=== PATIENT | female | born 1980 | race Caucasian/White ===

== ENCOUNTER 2021-02-03 19:41 | Emergency (ER) | payer OTHER ==
[~2021-02-03] VITALS: Ht 172.7 cm; Wt 101.6 kg
--- NOTE | 2021-02-03 20:47 | PHYS DOC ---
Past History Past Surgical History: Other Additional Past Surgical Histo: hernia, wisdom teeth extraction (EDDY FAULKNER APRN) Adult General Chief Complaint Chief Complaint: CONGESTION HPI HPI Patient is a 40-year-old female presents emergency department with chief complaint of cough and congestion this morning that has resolved throughout the day. Patient states that she has an 1 year 7-month-old son that attends daycare and it was reported there has been RSV cases with other children that attend the daycare her son attends, patient fears she may have contracted RSV. Patient currently denies chest pain, shortness of breath, cough, fever or chills. Patient states that she did have a cough this morning but it did resolve. Patient denies rashes of her skin, visual disturbances, dizziness or headaches. Patient states she is a non-smoker, nondrinker, does not use illicit drugs. Patient states she has not been on any antibiotics over the past 3 months. Patient reports she has had the Moderna COVID-19 vaccine completed. (EDDY FAULKNER APRN) Review of Systems Review of Systems 14 body systems of review of systems have been reviewed. See HPI for pertinent positives and negative responses, otherwise all other systems are negative, nonpertinent or noncontributory. Constitutional: Negative except as outlined in HPI above. Skin: Negative except as outlined in HPI above. Eyes: Negative except as outlined in HPI above. HENT: Negative except as outlined in HPI above. Respiratory: Negative except as outlined in HPI above. Cardiovascular: Negative except as outlined in HPI above. GI: Negative except as outlined in HPI above. : Negative except as outlined in HPI above. Musculoskeletal: Negative except as outlined in HPI above. Integument: Negative except as outlined in HPI above. Neurologic: Negative except as outlined in HPI above. Endocrine: Negative except as outlined in HPI above. Lymphatic: Negative except as outlined in HPI above. Psychiatric: Negative except as outlined in HPI above. (EDDY FAULKNER APRN) Physical Exam Physical Exam Constitutional: Well developed, well nourished, no acute distress, non-toxic a ppearance. 40-year-old female in no apparent distress. HENT: Normocephalic, atraumatic. No lymphadenopathy of the head or neck appreciated, oropharynx moist, pink, no infectious process appreciated, no drooling, no trismus. Eyes: Conjunctiva normal, no discharge. Neck: Normal range of motion, no stridor. Cardiovascular: No cyanosis appreciated, distal cap refill less than 2 seconds. Heart sounds S1-S2. Lungs & Thorax: Patient is in no respiratory distress, no audible adventitious lung sounds appreciated. Lung sounds clear to auscultate all lung price, no adventitious lung sounds appreciated per auscultation. Abdomen: Nontender, no abnormalities noted. Skin: Warm, dry, no erythema, no rash. Back: No tenderness, no deformities. Extremities: No tenderness, no cyanosis, no clubbing, ROM intact, no edema. Neurologic: Alert and oriented X 3, normal motor function, normal sensory f unction, no focal deficits noted. Psychologic: Affect normal, judgement normal, mood normal. (EDDY FAULKNER APRN) Current Patient Data Vital Signs Vital Signs Date Time Temp Pulse Resp B/P (MAP) Pulse Ox O2 Delivery O2 Flow Rate FiO2 02/03/21 20:23 99.1 96 18 124/87 97 Room Air (EDDY FAULKNER APRN) EKG EKG [] (EDDY FAULKNER APRN) Radiology/Procedures Radiology/Procedures PATIENT: BRETT PAT ACCOUNT: [id number] : 1980 LOCATION: ER AGE: 40 SEX: F EXAM STATUS: DEP ER ORD. PHYSICIAN: EDDY FAULKNER APRN REASON: cough and congestion PROCEDURE: CHEST AP ONLY XR CHEST 1V 02/03/2021 9:31 PM INDICATION: Cough and congestion COMPARISON: None available TECHNIQUE: Portable frontal view of the chest is provided. FINDINGS: The cardiomediastinal silhouette is within normal limits. Lungs are clear. There are no significant pleural effusions. There is no pulmonary vascular congestion. No pneumothorax. No suspicious osseous abnormality. IMPRESSION: There is no acute cardiopulmonary process. Electronically signed by: Jan Brothers MD (02/03/2021 10:39 PM) [facility] DICTATED AND SIGNED BY: JAN BROTHERS MD DATE: 02/03/21 1397 CC: EDDY FAULKNER APRN; PCP,UNKNOWN ~MTH0 0 (EDDY FAULKNER APRN) Heart Score C/O Chest Pain: No Risk Factors: Risk Factors: DM, Current or recent (<one month) smoker, HTN, HLP, family history of CAD, obesity. Risk Scores: Risk Factors: DM, Current or recent (<one month) smoker, HTN, HLP, family history of CAD, obesity. (EDDY FAULKNER APRN) Course & Med Decision Making Course & Med Decision Making Pertinent Labs and Imaging studies reviewed. (See chart for details) 40-year-old female, vital signs reviewed, presents emergency department complaining of cough and congestion this morning that resolved throughout the day. Physical examination unremarkable however patient's complaint of cough and congestion will order chest x-ray to rule out pulmonary infectious process. Patient denies any chest pain or palpitations, EKG not indicated. Patient's chest x-ray unremarkable, discussed findings with patient, complaint of cough and congestion most likely viral bronchitis, patient agrees with this, patient states she does not have any symptoms at this time. Will recommend gcrl-snr-mqdrixw cough medicines and throat anesthetics for ongoing symptoms if they do arise. Rnqf-hge-hpugixu Tylenol or Motrin for fevers, chills, discomfort. Patient gave verbal understanding discharge home instructions, follow-up with PCP this week for ongoing symptoms, return to ER precautions and concerns, patient remained hemodynamically stable throughout her ER stay and at discharge time, patient had no further questions or concerns, patient was discharged home without incident. (EDDY FAULKNER APRN) Course & Med Decision Making Did not see or evaluate patient. Agree with BIT SHAVER's work-up and disposition per note (TOMMY VILLEGAS MD) Dragon Disclaimer Dragon Disclaimer This electronic medical record was generated, in whole or in part, using a voice recognition dictation system. (EDDY FAULKNER APRN) Departure Departure: Impression: Primary Impression: Bronchitis Disposition: HOME / SELF CARE / HOMELESS Condition: GOOD Referrals: PCP,UNKNOWN (PCP) Patient Instructions: Acute Bronchitis Additional Instructions: You were seen today in the emergency department for cough and congestion. I believe this is an exacerbation of an acute bronchitis brought on by a viral syndrome most likely contacted from your son who has been around other viral syndromes at his daycare. You may use mnal-imy-bfodqvn Robitussin-DM for cough and congestion, Chloraseptic anesthetic throat spray, I recommend the red type and keeping it in the refrigerator as this helps with soothing discomfort. You may also use children's ibuprofen suspension as this helps with mild throat discomfort. Your chest x-ray did not show any concerning signs of a pneumonia, there is no indication to start on an antibiotic as this is most likely a viral source. Please follow-up with your primary care physician for ongoing symptoms, please return immediately to the emergency department for increased shortness of breath or worsening signs and symptoms. It was a pleasure taking care of you today in the emergency department and I thank you for allowing me to participat e in your emergency healthcare needs. EMERGENCY DEPARTMENT GENERAL DISCHARGE INSTRUCTIONS Thank you for coming to [facility] (ED) today and trusting us with you care. We trust that you had a positivie experience in our Emergency Department. If you wish to speak to the department management, you may call the director at [phone]. YOUR FOLLOW UP INSTRUCTIONS ARE FOLLOWS: 1. Do you have a private Doctor? If you do not have a private doctor, please ask for a resource list of physicians or clinics that may be able to assist you with follow up care. 2. The Emergency Physician has interpreted your x-rays. The X-Ray specialist will also review them. If there is a change in the findings, you will be notified in 48 hours when at all possible. 3. A lab test or culture has been done, your results will be reviewed and you will be notified if you need a change in treatment. ADDITIONAL INSTRUCTIONS AND INFORMATION: 1. Your care today has been supervised by a physician who is specially trained in emergency care. Many problems require more than one evaluation for a complete diagnosis and treatment. We recommend that you schedule your follow up appointment as recommended to ensure complete treatment of you illness or injury. If you are unable to obtain follow up care and continue to have a problem, or if your condition worsens, we recommend that you return to the ED. 2. We are not able to safely determine your condition over the phone nor are we able to give sound medical advice over the phone. For these safety reasons, if you call for medical advice we will ask you to come to the ED for further evaluation. 3. If you have any questions regarding these discharge instructions please call the ED at [phone]. SAFETY INFORMATION: In the interest of safety, wellness, and injury prevention; we encourage you to wear your sealbelt, if you smoke; quite smoking, and we encourage family to use a protective helmet for bicycling and other sporting events that present an increased risk for head injury. IF YOUR SYMPTOMS WORSEN OR NEW SYMPTOMS DEVELOP, OR YOU HAVE CONCERNS ABOUT YOUR CONDITION; OR IF YOUR CONDITION WORSENS WHILE YOU ARE WAITING FOR YOUR FOLLOW UP APPOINTMENT; EITHER CONTACT YOUR PRIMARY CARE DOCTOR, THE PHYSICIAN WHOSE NAME AND NUMBER YOU WERE GIVEN, OR RETURN TO THE ED IMMEDIATELY. EDDY FAULKNER APRN Feb 03, 2021 20:47 TOMMY VILLEGAS MD Feb 04, 2021 19:02
[2021-02-03 22:05] VITALS: BP 128/84
--- NOTE | 2021-02-03 22:42 | RAD ---
XR CHEST 1V 02/03/2021 9:31 PM INDICATION: Cough and congestion COMPARISON: None available TECHNIQUE: Portable frontal view of the chest is provided. FINDINGS: The cardiomediastinal silhouette is within normal limits. Lungs are clear. There are no significant pleural effusions. There is no pulmonary vascular congestion. No pneumothora x. No suspicious osseous abnormality. IMPRESSION: There is no acute cardiopulmonary process. Electronically signed by: Barb Ventura MD (02/03/2021 10:39 PM) [facility]
== END 2021-02-03 22:07 | disposition home or self-care (01) ==
LOC: ER 19:41
DX: J40 Bronchitis, not specified as acute or chronic (principal)
CPT/HCPCS: 71045; 99283